=== PATIENT | female | born 1975 | race Caucasian/White ===

== ENCOUNTER 2016-11-03 12:28 | Day surgery (SDC) | payer OTHER ==
[2016-11-02 11:40] VITALS: BMI 37.0
[2016-11-03 13:21] LABS: BASOPHIL 0.5 % (0-2.0); EOSINOPHIL 0.9 % (0-4.5); MCH 29.2 pg (25.7-33.7); MCHC 33.7 g/dl (32.0-36.0); MEAN CELL VOLUME 86.6 fl (80-96); MEAN PLT VOLUME 7.6 fl (7.5-11.1); NEUTROPHILS 65.5 % (42.8-82.8); PLATELET COUNT 239 K/MM3 (134-434); WHITE BLOOD COUNT 11.9 K/mm3 (4.0-10.0)
[2016-11-03] MEDS ORDERED: MIDAZOLAM HCL 2 MG/2 ML SINGLE DOSE VIAL ONE ×2 (14:24→15:20)
--- NOTE | 2016-11-03 14:33 | HP ---
Admitting History and Physical - Admission Chief Complaint: Missed History of Present Illness: 41 yo , is pre op for missed AB. History Source: Patient Limitations to Obtaining History: No Limitations - Past Medical History ...LMP: 08/25/16 ...: Yes ...: 1 ...Para: 0 - Past Surgical History Past Surgical History: Yes: None - Smoking History Smoking history: Never smoked - Alcohol/Substance Use Hx Alcohol Use: No History of Substance Use: reports: None - Social History Usual Living Arrangement: Yes: With Significant Other History of Recent Travel: No Home Medications - Allergies Allergies/Adverse Reactions: Allergies Allergy/AdvReac Type Severity Reaction Status Date / Time No Known Allergies Allergy Verified 11/03/16 13:40 - Home Medications Home Medications: Ambulatory Orders NK [No Known Home Medication] 11/02/16 Review of Systems - Review of Systems Constitutional: reports: No Symptoms Eyes: reports: No Symptoms HENT: reports: No Symptoms Neck: reports: No Symptoms Cardiovascular: reports: No Symptoms Respiratory: reports: No Symptoms Gastrointestinal: reports: No Symptoms Genitourinary: reports: No Symptoms Breasts: reports: No Symptoms Reported Musculoskeletal: reports: No Symptoms Integumentary: reports: No Symptoms Neurological: reports: No Symptoms Endocrine: reports: No Symptoms Hematology/Lymphatic: reports: No Symptoms Psychiatric: reports: No Symptoms Physical Examination Vital Signs: Vital Signs Temperature 98.7 F 11/03/16 13:39 Pulse Rate 74 11/03/16 13:39 Respiratory Rate 20 11/03/16 13:39 Blood Pressure 129/70 11/03/16 13:39 O2 Sat by Pulse Oximetry (%) 100 11/03/16 13:39 Constitutional: Yes: Well Nourished Eyes: Yes: Conjunctiva Clear HENT: Yes: Atraumatic Neck: Yes: Supple Cardiovascular: Yes: Regular Rate and Rhythm Respiratory: Yes: Regular Gastrointestinal: Yes: Normal Bowel Sounds Neurological: Yes: Alert, Oriented ...Motor Strength: WNL Psychiatric: Yes: Alert, Oriented Labs: CBC, BMP 11/03/16 13:11 Problem List - Problems (1) Missed Code(s): O02.1 - MISSED Assessment/Plan Missed Pre op for suction D&C Consent signed Anesthesia to see patient
--- NOTE | 2016-11-03 15:18 | OP ---
Operative Note - Note: Operative Date: 11/03/16 Pre-Operative Diagnosis: Missed Operation: Suction D&C Findings: Product of conception / Cervical os closed Post-Operative Diagnosis: Same as Pre-op Surgeon: Mildred Cooper Anesthesia: General Estimated Blood Loss (mls): 100
[2016-11-03] MEDS ORDERED: ONDANSETRON 4 MG/2 ML VIAL IVPUSH PRN (15:32)
[2016-11-03] MEDS ORDERED: oxyCODONE HCL 5 MG TABLET PO PRN (15:32)
[2016-11-03] MEDS ORDERED: LACTATED RINGERS SOLUTION 1,000 ML IV SCH (15:45)
[2016-11-03] MEDS ORDERED: RHO(D) IMMUNE GLOBULIN 1,500 UNIT DISP.SYRIN IM ONE (15:56)
--- NOTE | 2016-11-03 16:20 | OP ---
DATE OF OPERATION: 11/03/2016 PREOPERATIVE DIAGNOSIS: Missed . POSTOPERATIVE DIAGNOSIS: Missed . PROCEDURE: Suction dilatation and curettage. SURGEON: Mildred Cooper MD ANESTHESIA: General. COMPLICATIONS: None. ESTIMATED BLOOD LOSS: 100 mL DESCRIPTION OF PROCEDURE: The patient was taken to the operating room where general anesthesia was administered. Patient was then placed in lithotomy position. She was then prepped and draped in proper sterile fashion. A weighted speculum was placed in the vagina. The anterior lip of the cervix was grasped with a single-tooth tenaculum. Then, the cervical os was sequentially dilated with Grimes dilators. Then, an 8-mm suction curette was then gently introduced into the uterine cavity. The suction curette was then rotated to clear the uterus of all products of conception. Then, a sharp curettage was then performed. The curette was reintroduced to clear the uterus of all remaining products of conception. Then, the instruments were removed. The patient was taken out of lithotomy position. She was taken to PACU in stable condition. PATHOLOGY: Products of conception. Jeanie [id number]
[2016-11-03 17:11] VITALS: TEMP 98.2
[2016-11-03 17:47] VITALS: BP 141/75; PULSE 90
--- NOTE | 2016-11-07 12:40 | PATH ---
Surgical Pathology Report Patient Name: RICARDO GARCIA Med. Rec. #: [id number] /Age/Gender: 1975 (Age: 41) / F Account: [id number] Location: [facility] Taken: 11/03/2016 Received: 11/04/2016 Reported: 11/07/2016 Physicians: Mildred Cooper M.D. Specimen(s) Received PRODUCTS OF CONCEPTION Clinical History Missed Final Diagnosis UTERINE CONTENTS, EVACUATION: CHORIONIC VILLI CONSISTENT WITH PRODUCTS OF CONCEPTION. Electronically Signed Willie Danielle M.D. Gross Description Received in formalin labeled "products of conception," is a 10.0 x 7.5 x 1.0 cm aggregate of red-brown soft tissue fragments. Villous tissue is identified. No definite somatic tissue is identified. A congressional representative portion is submitted in one cassette. 11/04/201611/04/2016
== END 2016-11-03 17:50 | disposition home or self-care (01) ==
LOC: JASU-SURG 12:28
PROVIDERS: ATTEND Obstetrics & Gynecology
PROC: 10D17ZZ Extraction of Products of Conception, Retained, Via Natural or Artificial Opening (ICD-10-PCS; principal; 2016-11-03 14:30)
DX: O02.1 Missed abortion (principal)
CPT/HCPCS: 36415; 85025; 86850; 86900; 86901; 86999; 88305-TC; 94760; J1561

== ENCOUNTER 2021-06-19 19:45 | Inpatient (IN) | payer BC ==
[2021-06-19] MEDS ORDERED: DEXTROSE 5%-LACTATED RINGERS 1,000 ML IV SCH (20:45)
[2021-06-19 22:21] LABS: BASO % 0.4 % (0-2.0); EOS % 1.4 % (0-4.5); HEMATOCRIT 31.7 % (32.4-45.2); HEMOGLOBIN 11.1 GM/dL (10.7-15.3); LYMPH % 16.5 % (8-40); MCH 30.8 pg (25.7-33.7); MCHC 34.9 g/dl (32.0-36.0); MEAN CELL VOLUME 88.1 fl (80-96); MONO % 7.3 % (3.8-10.2); NEUT % 74.4 % (42.8-82.8); PLATELET COUNT 235 10^3/uL (134-434); WHITE BLOOD COUNT 11.9 K/mm3 (4.0-10.0)
[2021-06-19 22:35] LABS: INR 0.92 (0.83-1.09); PROTHROMBIN TIME (PATIENT) 10.6 SEC (9.7-13.0)
[2021-06-19 22:38] LABS: ACTIVATED PTT 26.8 SECONDS (25.2-36.5)
[2021-06-19 22:57] LABS: CALCIUM 8.8 mg/dL (8.5-10.1); CREATININE 0.5 mg/dL (0.55-1.3)
[2021-06-19] MEDS: MISOPROSTOL 100 MCG TABLET PV SCH (23:10)
[2021-06-20 03:17] VITALS: BMI 40.5
[2021-06-20 03:28] LABS: HIV INTERPRETATION NEGATIVE (NEGATIVE)
[2021-06-20] MEDS ORDERED: BUTORPHANOL TARTRATE 2 MG/ML VIAL ONE ×2 (04:25→11:38)
[2021-06-20] MEDS ORDERED: BUTORPHANOL TARTRATE 1 MG/ML VIAL IVPB ONE ×2 (04:26→12:00)
[2021-06-20] MEDS ORDERED: PROMETHAZINE HCL 25 MG/1 ML VIAL IVPB ONE ×2 (04:27→12:00)
[2021-06-20] MEDS: MISOPROSTOL 100 MCG TABLET PV SCH ×4 (07:50→19:02)
[2021-06-20] MEDS ORDERED: PROMETHAZINE HCL 25 MG/1 ML VIAL ONE (11:38)
[2021-06-20] MEDS ORDERED: LIDOCAINE HCL 1% PRESERVATIVE FREE - 30ML VIAL ONE (13:46)
[2021-06-20] MEDS ORDERED: OXYTOCIN 20 UNITS in 0.9% NS 20 UNIT/1,000 ML INFUS.BAG IV ONE (13:46)
[2021-06-20 14:41] LABS: CORD BASE EXCESS -7.2 mmol/L (0-2); CORD HCO3 19.5 mmHg (20-29); CORD PCO2 43.5 mmHg (30-78); CORD pH 7.27 (7.14-7.44)
[2021-06-20 14:42] LABS: CORD BASE EXCESS -3.8 mmol/L (0-2); CORD HCO3 20.4 mmHg (20-29); CORD PCO2 35.6 mmHg (30-78); CORD pH 7.377 (7.14-7.44)
[2021-06-20] MEDS ORDERED: BISACODYL 10 MG SUPP.RECT RC PRN (15:29)
[2021-06-20] MEDS ORDERED: ACETAMINOPHEN 325 MG TABLET (FP) PO PRN (15:29)
[2021-06-20] MEDS ORDERED: BENZOCAINE 20% 57 GM BOTTLE TP PRN (15:29)
[2021-06-20] MEDS ORDERED: BENZOCAINE 28 GM HEMORRHOIDAL OINTMENT TP PRN (15:29)
[2021-06-20] MEDS ORDERED: WITCH HAZEL 50% (TUCKS) 40 PAD/JAR PAD TP PRN (15:29)
[2021-06-20] MEDS ORDERED: OXYTOCIN 20 UNITS in 0.9% NS 20 UNIT/1,000 ML INFUS.BAG IV SCH (15:30)
[2021-06-20] MEDS: IBUPROFEN 600 MG TABLET (FP) PO PRN ×2 (16:03→20:07)
[2021-06-20] MEDS ORDERED: IBUPROFEN 600 MG TABLET (FP) PO ONE (16:04)
[2021-06-20] MEDS ORDERED: RHO(D) IMMUNE GLOBULIN 1,500 UNIT DISP.SYRIN IM ONE (17:51)
[2021-06-20] MEDS ORDERED: CITRIC ACID/SODIUM CITRATE 30 ML UNIT-DOSE CUP PO ONE (22:00)
[2021-06-21 09:10] LABS: BASO % 0.2 % (0-2.0); EOS % 0.5 % (0-4.5); HEMATOCRIT 26.7 % (32.4-45.2); HEMOGLOBIN 9.3 GM/dL (10.7-15.3); MCH 31.1 pg (25.7-33.7); MCHC 34.9 g/dl (32.0-36.0); MEAN CELL VOLUME 89.1 fl (80-96); MEAN PLT VOLUME 7.8 fl (7.5-11.1); MONO % 6.1 % (3.8-10.2); NEUT % 80.2 % (42.8-82.8); PLATELET COUNT 225 10^3/uL (134-434); RBC 2.99 M/mm3 (3.60-5.2); RDW 13.9 % (11.6-15.6); WHITE BLOOD COUNT 18.7 K/mm3 (4.0-10.0)
[2021-06-21 14:07] LABS: SARS-CoV-2 NAA Not Detected (Not Detected)
[2021-06-21] MEDS ORDERED: SENNOSIDES/DOCUSATE COMBO (SENNA PLUS) TABLET (UD) PO PRN (22:00)
[2021-06-22 10:57] VITALS: BP 139/90; PULSE 91; TEMP 97.7
== END 2021-06-22 12:15 | disposition home or self-care (01) | DRG 807 ==
LOC: JLDR 19:45 → J3W 06-20 16:06
PROVIDERS: ADMIT Obstetrics & Gynecology Maternal & Fetal Medicine; ATTEND Obstetrics & Gynecology Maternal & Fetal Medicine
PROC: 0HQ9XZZ Repair Perineum Skin, External Approach (ICD-10-PCS; principal; 2021-06-20)
PROC: 10E0XZZ Delivery of Products of Conception, External Approach (ICD-10-PCS; 2021-06-20)
DX: O13.4 Gestational [pregnancy-induced] hypertension without significant proteinuria, complicating childbirth (principal); Z37.0 Single live birth; O70.0 First degree perineal laceration during delivery; O99.214 Obesity complicating childbirth; Z3A.37 37 weeks gestation of pregnancy
CPT/HCPCS: 36415; 36600; 59409; 80048; 82803; 85025; 85461; 85610; 85730; 86780; 86850; 86870; 86900; 86901; 86902; 86999; 87389; C9803-CS; J1561; U0003; U0005

== ENCOUNTER 2023-07-21 07:00 | Inpatient (IN) | payer BC ==
[2023-07-21 08:23] VITALS: BMI 39.1
[2023-07-21] MEDS: DEXTROSE 5%-LACTATED RINGERS 1,000 ML IV SCH (09:00)
[2023-07-21] MEDS: SODIUM CHLORIDE 500 ML IV STA ×3 (09:25→20:40)
[2023-07-21 10:01] LABS: BASO % 0.7 % (0-2.0); EOS % 2.5 % (0-4.5); HEMATOCRIT 35.3 % (32.4-45.2); HEMOGLOBIN 12.1 GM/dL (10.7-15.3); MCH 30.1 pg (25.7-33.7); MCHC 34.3 g/dl (32.0-36.0); MEAN CELL VOLUME 87.7 fl (80-96); MEAN PLT VOLUME 8.4 fl (7.5-11.1); MONO % 5.8 % (3.8-10.2); PLATELET COUNT 247 10^3/uL (134-434); RBC 4.02 M/mm3 (3.60-5.2); RDW 13.7 % (11.6-15.6); WHITE BLOOD COUNT 11.9 K/mm3 (4.0-10.0)
[2023-07-21 10:19] LABS: INR 0.96 (0.83-1.09); POTASSIUM 4.6 mmol/L (3.5-5.1); PROTHROMBIN TIME (PATIENT) 11.1 SEC (9.7-13.0)
[2023-07-21 10:22] LABS: ACTIVATED PTT 27.2 SECONDS (25.2-36.5)
[2023-07-21 10:23] LABS: CALCIUM 8.6 mg/dL (8.5-10.1)
[2023-07-21 10:24] LABS: ALBUMIN 2.5 g/dl (3.4-5.0); BLOOD UREA NITROGEN 7.9 mg/dL (7-18)
[2023-07-21 10:27] LABS: CREATININE 0.6 mg/dL (0.55-1.3)
[2023-07-21 10:28] LABS: BILIRUBIN,TOTAL 0.4 mg/dL (0.2-1)
[2023-07-21 11:31] LABS: HIV INTERPRETATION NEGATIVE (NEGATIVE)
[2023-07-21] MEDS: MISOPROSTOL 25 MCG TABLET (COMPOUNDED BY PHARMACY) PV SCH (17:35)
[2023-07-21] MEDS ORDERED: PENICILLIN G POTASSIUM 5,000,000 UNIT/250 ML BAG IVPB ONE (19:33)
[2023-07-21] MEDS: PENICILLIN G POTASSIUM 5,000,000 PRE-DOCK IN NS 250 ML IVPB ONE (19:40)
[2023-07-21] MEDS ORDERED: morphine SULFATE 4 MG/ML VIAL ONE (22:49)
[2023-07-21] MEDS: morphine SULFATE 4 MG/ML VIAL IVPUSH ONE (23:00)
[2023-07-21] MEDS ORDERED: OXYTOCIN 20 UNITS in 0.9% NS 20 UNIT/1,000 ML INFUS.BAG IV ONE (23:10)
[2023-07-21] MEDS ORDERED: LIDOCAINE HCL 1% PRESERVATIVE FREE - 30ML VIAL ONE (23:11)
[2023-07-21] MEDS ORDERED: PENICILLIN G POTASSIUM 20,000,000 (20Mm) UNITS VIAL IVPB SCH (23:26)
[2023-07-21] MEDS: OXYTOCIN 20 UNITS in 0.9% NS 20 UNIT/1,000 ML INFUS.BAG IV SCH (23:50)
[2023-07-22] MEDS ORDERED: IBUPROFEN 600 MG TABLET (FP) PO PRN
[2023-07-22] MEDS ORDERED: ACETAMINOPHEN 325 MG TABLET (FP) PO PRN
[2023-07-22 00:27] LABS: CORD PCO2 43.3 mmHg (30-78)
[2023-07-22 00:30] LABS: CORD BASE EXCESS -5.7 mmol/L (0-2); CORD HCO3 16.6 mmHg (20-29); CORD PCO2 26.6 mmHg (30-78); CORD pH 7.412 (7.14-7.44)
[2023-07-22 00:39] LABS: CORD pH 7.304 (7.14-7.44)
[2023-07-22] MEDS: WITCH HAZEL 50% (TUCKS) 40 PAD/JAR PAD TP PRN (02:37)
[2023-07-22] MEDS: BENZOCAINE 28 GM HEMORRHOIDAL OINTMENT TP PRN (02:38)
[2023-07-22] MEDS: PENICILLIN G POTASSIUM 2,500,000 UNIT in SODIUM CHLORIDE 100 ML IVPB SCH (02:46)
[2023-07-22] MEDS: DIPHTH,PERTUSS(ACELL),TET 0.5 ML DISP.SYRIN IM ONE (10:08)
[2023-07-22 14:05] VITALS: RESP 18
[2023-07-22 15:46] LABS: HEMATOCRIT 31.4 % (32.4-45.2); HEMOGLOBIN 10.5 GM/dL (10.7-15.3); MCHC 33.5 g/dl (32.0-36.0); MEAN CELL VOLUME 89.5 fl (80-96); MEAN PLT VOLUME 8.1 fl (7.5-11.1); PLATELET COUNT 229 10^3/uL (134-434); RDW 14.1 % (11.6-15.6); WHITE BLOOD COUNT 17.1 K/mm3 (4.0-10.0)
[2023-07-22 19:04] VITALS: BP 118/79; PULSE 77; TEMP 97.4
[2023-08-04 07:44] LABS: POC NITRAZINE POS
== END 2023-07-22 19:41 | disposition home or self-care (01) | DRG 806 ==
LOC: JDEL 07:00 → JLDR 07:31 → J3W 07-22 02:15
PROVIDERS: ADMIT Obstetrics & Gynecology Maternal & Fetal Medicine; ATTEND Obstetrics & Gynecology Maternal & Fetal Medicine
PROC: 10E0XZZ Delivery of Products of Conception, External Approach (ICD-10-PCS; principal; 2023-07-21)
PROC: 0HQ9XZZ Repair Perineum Skin, External Approach (ICD-10-PCS; 2023-07-21)
DX: O42.92 Full-term premature rupture of membranes, unspecified as to length of time between rupture and onset of labor (principal); O10.92 Unspecified pre-existing hypertension complicating childbirth; O70.0 First degree perineal laceration during delivery; Z3A.38 38 weeks gestation of pregnancy; Z37.0 Single live birth
CPT/HCPCS: 36415; 36600; 59025; 80053; 82803; 83986-QW; 85025; 85027; 85461; 85610; 85730; 86780; 86850; 86900; 86901; 87389; 88307-TC; 90715; 96372; J2790